=== PATIENT | male | born 1965 | race Hispanic/Latino ===

== ENCOUNTER 2017-07-28 15:38 | Emergency (ER) | payer BC ==
[2017-07-28 16:31] VITALS: BMI 32.8
[2017-07-28 16:42] VITALS: RESP 18
--- NOTE | 2017-07-28 16:51 | ED PDOC ---
HPI: Abdomen Time Seen by Provider: 07/28/17 16:23 Chief Complaint (Nursing): Abdominal Pain Chief Complaint (Provider): Abdominal pain History Per: Patient History/Exam Limitations: no limitations Onset/Duration Of Symptoms: Days (1 day ago), Gradual Current Symptoms Are (Timing): Constant Location Of Pain/Discomfort: LLQ Associated Symptoms: Diarrhea (non-bloody) Additional Complaint(s): 52 y/o male with a history of diverticulitis, presents to the ED with constant left lower quadrant abdominal pain associated with an episode of non-bloody diarrhea, onset of 1 day ago. Patient initially went to [facility], but was advised to come to the ED for reevaluation. Patient reports of a similar pain 4 years ago, where he was initially diagnosed with diverticulitis. At that time his primary care doctor gave him antibiotics and about a week later he had a colonoscopy done, which found that he had diverticulosis. Of note, he has not been adherent to the diet suggested for people with diverticulosis. He denies nausea, vomiting, melena or hematochezia, fevers or chills. Past Medical History Reviewed: Historical Data, Nursing Documentation, Vital Signs Vital Signs: Last Vital Signs Temp 98.3 F 07/28/17 16:42 Pulse 71 07/28/17 16:42 Resp 18 07/28/17 16:42 BP 141/84 07/28/17 16:42 Pulse Ox 95 07/28/17 16:42 - Medical History PMH: Diverticulitis - Surgical History Surgical History: No Surg Hx - Family History Family History: States: Unknown Family Hx - Social History Current smoker - smoking cessation education provided: No Ex-Smoker (has not smoked in the last 12 months): No Alcohol: Social Drugs: Denies - Immunization History Hx Tetanus Toxoid Vaccination: No Hx Influenza Vaccination: No Hx Pneumococcal Vaccination: No - Home Medications Home Medications: Ambulatory Orders Medication Instructions Recorded Ciprofloxacin [Cipro] 1 tab PO BID #20 tab 07/28/17 Ibuprofen [Motrin Tab] 600 mg PO Q8 PRN #60 tab 07/28/17 metroNIDAZOLE [Flagyl] 500 mg PO TID #30 tab 07/28/17 - Allergies Allergies/Adverse Reactions: Allergies Allergy/AdvReac Type Severity Reaction Status Date / Time No Known Allergies Allergy Verified 07/28/17 16:31 Review of Systems ROS Statement: Except As Marked, All Systems Reviewed And Found Negative Constitutional: Negative for: Fever, Chills Gastrointestinal: Positive for: Abdominal Pain (llq), Diarrhea. Negative for: Nausea, Vomiting, Melena, Hematochezia Physical Exam - Reviewed Nursing Documentation Reviewed: Yes Vital Signs Reviewed: Yes - Physical Exam Appears: Positive for: Non-toxic, No Acute Distress Head Exam: Positive for: ATRAUMATIC, NORMOCEPHALIC Skin: Positive for: Warm, Dry Eye Exam: Positive for: EOMI Respiratory: Negative for: Respiratory Distress Gastrointestinal/Abdominal: Positive for: Bowel Sounds, Soft, Tenderness (LLQ to deep palpation). Negative for: Mass, Distended, Guarding, Rebound Back: Negative for: Decreased ROM Extremity: Positive for: Normal ROM. Negative for: Deformity Neurologic/Psych: Positive for: Alert. Negative for: Motor/Sensory Deficits - ECG Pulse Ox Interpretation: Normal Medical Decision Making Medical Decision Making: Time: --16:48 Impression: --Diverticulitis Plan: --Cipro 500mg PO --Motrin 600mg PO --Flagyl 500mg PO Reassess --Provider discussed at length with patient about the signs and symptoms of severe diverticulitis. Patient will be presumptively treated for diverticulitis with a mandatory 48 hour follow up. Scribe Attestation: Documented by Raymond Balderas acting as a scribe for Emma Bales MD. Provider Attestation: All medical record entries made by the Scribe were at my direction and personally dictated by me. I have reviewed the chart and agree that the record accurately reflects my personal performance of the history, physical exam, medical decision making, and the department course for this patient. I have also personally directed, reviewed, and agree with the discharge instructions and disposition. Disposition - Clinical Impression Clinical Impression: Diverticulitis Counseled Patient/Family Regarding: Diagnosis, Need For Followup, Rx Given - Disposition Referrals: [facility] [Outside] [facility] [Outside] Disposition: Routine/Home Disposition Time: 16:45 Condition: STABLE Additional Instructions: MANDATORY REEVALUATION IN 48 HOURS WITH YOUR PMD OR [facility] (AIR VISIT THROUGH YOUR COMPUTER OR PHONE.) [facility] AND [facility] CAN ALSO ASSIST WITH FINDING A CONVENIENT PRIMARY CARE DOCTOR RETURN TO ER IMMEDIATELY FOR SEVERE PAIN, INTRACTABLE VOMITING, HIGH FEVERS, OR ANY OTHER WORRISOME SYMPTOMS Prescriptions: Ciprofloxacin [Cipro] 1 tab PO BID #20 tab Ibuprofen [Motrin Tab] 600 mg PO Q8 PRN #60 tab PRN Reason: Pain, Moderate (4-7) metroNIDAZOLE [Flagyl] 500 mg PO TID #30 tab Instructions: Diverticulitis (DC) Forms: [employer] [facility] ([place])
[2017-07-28 17:24] VITALS: BP 128/78; PULSE 78; TEMP 97; O2SAT 98
== END 2017-07-28 17:23 | disposition home or self-care (01) ==
LOC: H.ER 15:38
DX: K57.90 Diverticulosis of intestine, part unspecified, without perforation or abscess without bleeding (principal)